=== PATIENT | female | born 1995 | race Two or more races ===

== ENCOUNTER 2025-03-22 23:00 | Inpatient (IN) ==
[2025-03-22 23:32] VITALS: BMI 28.3
[2025-03-22 23:42] LABS: BLOOD/HEMOGLOBIN,URINE 1+ (NEGATIVE); LEUKOCYTE ESTERASE ,URINE NEGATIVE (NEGATIVE); NITRITES,URINE NEGATIVE (NEGATIVE)
[2025-03-22 23:43] LABS: APPEARANCE,URINE CLEAR (CLEAR)
[2025-03-22 23:48] LABS: SQUAMOUS EPITHELIAL CELL,UR NUMEROUS /HPF (NEGATIVE)
[2025-03-22 23:54] LABS: AMNISURE ROM TEST THERE IS A RUPTURE (NO RUPTURE)
[2025-03-23] MEDS ORDERED: REGLAN INJ 10 MG VIAL IVP PRN (00:07)
[2025-03-23] MEDS ORDERED: ZOFRAN INJ 4 MG VIAL IVP PRN (00:07)
[2025-03-23] MEDS ORDERED: NUBAIN INJ 10 MG AMP IVP PRN (00:07)
[2025-03-23 00:12] LABS: MEAN PLATELET VOLUME 10.8 fL (7.4-11.0); RED CELL DISTRIBUTION WIDTH 16.6 % (11.6-16.5)
[2025-03-23 00:14] LABS: CREATININE 0.45 mg/dL (0.55-1.02); eGFR NON BLACK RACES > 60 (>60)
[2025-03-23] MEDS: LR 1,000 ML IV 1,000 ML IV SCH (00:45)
[2025-03-23] MEDS ORDERED: PITOCIN ONE (00:52)
[2025-03-23] MEDS: OXYTOCIN 20 UNIT/1,000 ML-NS 20 UNIT/1,000 ML PLAST..BAG IV SCH (01:45)
[2025-03-23] MEDS: PITOCIN IVP ONE (01:45)
[2025-03-23] MEDS ORDERED: DERMOPLAST PAIN RELIEF SPRAY TOP PRN (02:45)
[2025-03-23] MEDS ORDERED: AMBIEN PO PRN (02:45)
[2025-03-23] MEDS ORDERED: MILK OF MAGNESIA PO PRN (02:45)
[2025-03-23] MEDS: MOTRIN TAB 800 MG PO PRN (05:23)
[2025-03-23] MEDS: PRENATAL PLUS PO SCH (09:48)
[2025-03-23] MEDS ORDERED: ADACEL or BOOSTRIX TDaP VACCINE IM ONE (15:05)
[2025-03-23] MEDS: ADACEL or BOOSTRIX TDaP VACCINE IM ONE (15:28)
[2025-03-24 20:04] VITALS: O2SAT 98
[2025-03-25 06:27] VITALS: RESP 16
[2025-03-25 08:13] VITALS: BP 103/66; PULSE 86; TEMP 98.2
== END 2025-03-25 10:00 | disposition home or self-care (01) | DRG 807 ==
LOC: ER 23:00 → LD 03-23 00:07 → MED/SURG 03-23 02:43
PROVIDERS: ADMIT Obstetrics & Gynecology Obstetrics; ATTEND Obstetrics & Gynecology Obstetrics
DX: Z3A.39 39 weeks gestation of pregnancy; Z37.0 Single live birth; O13.3 Gestational [pregnancy-induced] hypertension without significant proteinuria, third trimester; Z59.82 Transportation insecurity; Z55.8 Other problems related to education and literacy